=== PATIENT | female | born 1990 ===

== ENCOUNTER 2018-08-15 13:56 | Emergency (ER) | payer SELFPAY ==
--- NOTE | 2018-08-15 14:11 | ER Report ---
History and Physical Time Seen By MD: 14:11 Hx. of Stated Complaint: DIFFICULTY SWALLOWING HPI/ROS CHIEF COMPLAINT: Difficulty swallowing HISTORY OF PRESENT ILLNESS: 28-year-old female patient presents to emergency room with complaint of difficulty swallowing. Patient states that she's been having troubles for approximately 3 weeks at this point time. Patient states that she has no fevers, chills. Patient states she's been evaluated at [facility] urgent care, they did a myriad of lab tests. He said that her thyroid levels were low below. She states that they haven't ultrasound scheduled for a later time. I did encourage her to come emergency room she has difficulty swallowing water. Patient states today she had difficulty swallowing water. She states that she has had discomfort with that. She states that it has been getting progressively worse over last several days. She states prior that she did not have any sore throat, however the last few days this has gotten worse. REVIEW OF SYSTEMS: Respiratory: No cough, no dyspnea. Cardiovascular: No chest pain, no palpitations. Gastrointestinal: No vomiting, no abdominal pain. Musculoskeletal: No back pain. Allergies: Coded Allergies: sulfamethoxazole (Verified Allergy, Unknown, 08/15/18) trimethoprim (Verified Allergy, Unknown, 08/15/18) Home Meds No Active Prescriptions or Reported Meds Past Medical/Surgical History Patient has no pertinent medical or surgical history. Reviewed Nurses Notes: Yes Constitutional Vital Sign - Last 24 Hours 08/15/18 08/15/18 08/15/18 08/15/18 14:01 14:02 15:00 15:30 Temp 98.7 Pulse 86 Resp 18 B/P (MAP) 143/87 (105) 143/87 115/78 (90) 117/77 (90) Pulse Ox 96 O2 Delivery Room Air 08/15/18 08/15/18 08/15/18 16:00 16:30 17:00 Pulse 65 64 59 B/P (MAP) 112/77 (89) 120/86 (97) 111/77 (88) Pulse Ox 98 90 85 Physical Exam General Appearance: The patient is alert, has no immediate need for airway protection and no current signs of toxicity. ENT: Tympanic membranes are pearly-ruiz, auditory canals are patent, mucous membranes are moist. Posterior pharynx is erythematous. Respiratory: Chest is non tender, lungs are clear to auscultation. Cardiac: regular rate and rhythm Gastrointestinal: Abdomen is soft and non tender, no masses, bowel sounds normal. Musculoskeletal: Neck: Neck is supple and non tender. Extremities have full range of motion and are non tender. Skin: No rashes or lesions. DIFFERENTIAL DIAGNOSIS: After history and physical exam differential diagnosis was considered for upper respiratory infection, pharyngitis, peritonsillar abscess, post pharyngeal abscess. Medical Decision Making Data Points Result Diagram: 08/15/18 1425 08/15/18 1425 Laboratory Hematology Test 08/15/18 14:25 Red Blood Count 5.12 M/uL (4.17-5.56) Mean Corpuscular Volume 91.7 fL (80.0-96.0) Mean Corpuscular Hemoglobin 30.9 pg (26.0-33.0) Mean Corpuscular Hemoglobin Concent 33.7 g/dL (32.0-36.0) Red Cell Distribution Width 12.6 % (11.5-14.5) Mean Platelet Volume 7.6 fL (7.2-11.1) Neutrophils (%) (Auto) 70.9 % (39.4-72.5) Lymphocytes (%) (Auto) 19.8 % (17.6-49.6) Monocytes (%) (Auto) 7.8 % (4.1-12.4) Eosinophils (%) (Auto) 1.1 % (0.4-6.7) Basophils (%) (Auto) 0.4 % (0.3-1.4) Nucleated RBC Relative Count (auto) 0.0 /100WBC Neutrophils # (Auto) 4.7 K/uL (2.0-7.4) Lymphocytes # (Auto) 1.3 K/uL (1.3-3.6) Monocytes # (Auto) 0.5 K/uL (0.3-1.0) Eosinophils # (Auto) 0.1 K/uL (0.0-0.5) Basophils # (Auto) 0.0 K/uL (0.0-0.1) Nucleated RBC Absolute Count (auto) 0.00 K/uL Erythrocyte Sedimentation Rate 4 mm/HOUR (0-20) Sodium Level 143 mmol/L (137-145) Potassium Level 3.4 mmol/L (3.5-5.0) Chloride Level 108 mmol/L (98-107) Carbon Dioxide Level 21 mmol/L (22-31) Blood Urea Nitrogen 7 mg/dl (7-18) Creatinine 0.70 mg/dl (0.52-1.04) Glomerular Filtration Rate Calc > 60.0 Random Glucose 103 mg/dl (75-110) Calcium Level 10.0 mg/dl (8.4-10.2) Total Bilirubin 1.1 mg/dl (0.2-1.3) Aspartate Amino Transf (AST/SGOT) 30 U/L (0-35) Alanine Aminotransferase (ALT/SGPT) 25 U/L (0-56) Alkaline Phosphatase 58 U/L (0-126) C-Reactive Protein < 0.5 mg/dl (<1.0) Total Protein 8.5 g/dl (6.3-8.2) Albumin 5.1 g/dl (3.5-5.0) Human Chorionic Gonadotropin, Qual Negative (NEGATIVE) Monoscreen Negative (NEGATIVE) Chemistry Test 08/15/18 14:25 White Blood Count 6.6 k/uL (4.5-11.0) Red Blood Count 5.12 M/uL (4.17-5.56) Hemoglobin 15.8 g/dL (12.0-16.0) Hematocrit 47.0 % (34.0-47.0) Mean Corpuscular Volume 91.7 fL (80.0-96.0) Mean Corpuscular Hemoglobin 30.9 pg (26.0-33.0) Mean Corpuscular Hemoglobin Concent 33.7 g/dL (32.0-36.0) Red Cell Distribution Width 12.6 % (11.5-14.5) Platelet Count 230 K/uL (150-450) Mean Platelet Volume 7.6 fL (7.2-11.1) Neutrophils (%) (Auto) 70.9 % (39.4-72.5) Lymphocytes (%) (Auto) 19.8 % (17.6-49.6) Monocytes (%) (Auto) 7.8 % (4.1-12.4) Eosinophils (%) (Auto) 1.1 % (0.4-6.7) Basophils (%) (Auto) 0.4 % (0.3-1.4) Nucleated RBC Relative Count (auto) 0.0 /100WBC Neutrophils # (Auto) 4.7 K/uL (2.0-7.4) Lymphocytes # (Auto) 1.3 K/uL (1.3-3.6) Monocytes # (Auto) 0.5 K/uL (0.3-1.0) Eosinophils # (Auto) 0.1 K/uL (0.0-0.5) Basophils # (Auto) 0.0 K/uL (0.0-0.1) Nucleated RBC Absolute Count (auto) 0.00 K/uL Erythrocyte Sedimentation Rate 4 mm/HOUR (0-20) Glomerular Filtration Rate Calc > 60.0 Calcium Level 10.0 mg/dl (8.4-10.2) Total Bilirubin 1.1 mg/dl (0.2-1.3) Aspartate Amino Transf (AST/SGOT) 30 U/L (0-35) Alanine Aminotransferase (ALT/SGPT) 25 U/L (0-56) Alkaline Phosphatase 58 U/L (0-126) C-Reactive Protein < 0.5 mg/dl (<1.0) Total Protein 8.5 g/dl (6.3-8.2) Albumin 5.1 g/dl (3.5-5.0) Human Chorionic Gonadotropin, Qual Negative (NEGATIVE) Monoscreen Negative (NEGATIVE) EKG/Imaging Imaging EXAMINATION: CT neck with IV contrast HISTORY: Difficulty swallowing TECHNIQUE: CT was obtained through the neck following IV contrast administration. Sagittal and coronal reformatted images were generated. 75 mL of IV Isovue-370 injected. One of the following dose optimization techniques was utilized in the performance of this exam: automated exposure control; adjustment of the mA and/or kV according to patient size; or use of iterative reconstruction technique. Specific details can be referenced in the facility's radiology CT exam operational policy. COMPARISON: None. FINDINGS: Parotid/submandibular and thyroid glands: Partially cystic right mid to upper thyroid nodule measures 1.6 cm transverse by 2.4 cm craniocaudad. Pharyngeal and retropharyngeal soft tissues: Normal. Oral cavity and bathroom tiling professional space soft tissues: Normal. Larynx/glottis and airway: Normal. Lymph nodes: Normal. Vessels: No significant finding. Visualized orbits / brain: No significant finding. Upper chest: Normal. Bones/sinuses/mastoid air cells: Normal. IMPRESSION: 1. No acute finding. 2. Nonspecific 2.4 x 1.6 cm right mid to upper thyroid nodule. Thyroid ultrasound is recommended for further characterization. 3. Otherwise normal neck CT. Report Dictated By: Dada Heaton MD at 08/15/2018 4:09 PM Report E-Signed By: Dada Heaton MD at 08/15/2018 4:23 PM ED Course/Re-evaluation ED Course Patient is admitted and examined, history and physical were obtained. Differential diagnoses were considered. On examination lungs are clear, heart is regular, abdomen is soft and nontender. A CBC, CMP, ESR, CRP were done. Lab results were unremarkable. A CT scan of the soft tissues of neck was done. The images were negative except for a large nodule in the right hemisphere of the thyroid. I discussed the findings with the patient. We will go ahead and di scharge patient home at this time. Patient will be given Magic mouthwash to help with discomfort. We will also do an ultrasound at 8:00 in the morning. I would like her to follow-up Dr. Guerra for further evaluation of the thyroid nodule. I discussed this with patient who verbalized understanding and agreement with plan. Decision to Disposition Date: August 15, 2018 Decision to Disposition Time: 17:09 Depart Departure Latest Vital Signs Vital Signs Date Time Temp Pulse Resp B/P (MAP) Pulse Ox O2 Delivery O2 Flow Rate FiO2 08/15/18 17:00 59 111/77 (88) 85 08/15/18 14:02 98.7 18 Room Air Impression: Primary Impression: Thyroid nodule Condition: Improved Disposition: HOME OR SELF-CARE Referrals: PARVEEN GUERRA JR, MD New Scripts No Active Prescriptions or Reported Meds Patient Instructions: Pharyngitis (ED), Thyroid Nodules (ED) Additional Instructions: Increase fluid intake. Get plenty of rest Follow up with Dr. Guerra, ENT, call to make an appointment. Take Tylenol or Ibuprofen as needed. Get your Ultrasound done tomorrow at 8:00 a.m. Arrive 15 minutes early. LEN SAHNI [employer] August 15, 2018 14:11
[2018-08-15] MEDS ORDERED: NS(*) 0.9% 1000 ML BAG 1,000 ML IV ONE (14:25)
[2018-08-15 14:41] LABS: PLATELET COUNT, AUTOMATED 230 K/uL (150-450)
[2018-08-15] MEDS ORDERED: IOPAMIDOL 76% 100 ML INFUS BTL 100 ML ONE (15:31)
--- NOTE | 2018-08-15 16:28 | RADIOLOGY IMAGING REPORT ---
FACILITY: [facility] [place] PATIENT NAME: Rut Harris : 1990 MR: [id number] V: [id number] EXAM DATE: ORDERING PHYSICIAN: LEN SAHNI TECHNOLOGIST: [facility] Patient: Rut Harris : 1990 Visit/Account:[id number] Date of Sevice: 08/15/2018 EXAMINATION: CT neck with IV contrast HISTORY: Difficulty swallowing TECHNIQUE: CT was obtained through the neck following IV contrast administration. Sagittal and co jose antonio reformatted images were generated. 75 mL of IV Isovue-370 injected. One of the following dose optimization techniques was utilized in the performance of this exam: autom ated exposure control; adjustment of the mA and/or kV according to patient size; or use of iterative reconstruction technique. Specific details can be referenced in the facility's radiology CT exam ope rational policy. COMPARISON: None. FINDINGS: Parotid/submandibular and thyroid glands: Partially cystic right mid to upper thyroid nodule measures 1.6 cm transverse by 2.4 cm craniocaudad. Pharyngeal and retropharyngeal soft tissues: Normal. Oral cavity and vocal music instructor space soft tissues: Normal. Larynx/glottis and airway: Normal. Lymph nodes: Normal. Vessels: No significant finding. Visualized orbits / brain: No significant finding. Upper chest: Normal. Bones/sinuses/mastoid air cells: Normal. IMPRESSION: 1. No acute finding. 2. Nonspecific 2.4 x 1.6 cm right mid to upper thyroid nodule. Thyroid ultrasound is recommended fo r further characterization. 3. Otherwise normal neck CT. Report Dictated By: Dada Heaton MD at 08/15/2018 4:09 PM Report E-Signed By: Dada Heaton MD at 08/15/2018 4:23 PM WSN:[email or web address]
[2018-08-15 17:00] VITALS: BP 111/77
== END 2018-08-15 17:28 | disposition home or self-care (01) ==
LOC: ER 14:04
DX: E04.1 Nontoxic single thyroid nodule (principal)
CPT/HCPCS: 70491; 84703; 85025; 85651; 86140; 86308; 96360; 99284; J7030; Q9967; 82040; 82247; 82310; 82374; 82435; 82565; 82947; 84075; 84132; 84155; 84295; 84450; 84460; 84520

== ENCOUNTER → 2018-08-16 | Outpatient (CLI) | payer SELFPAY ==
--- NOTE | 2018-08-16 08:58 | RADIOLOGY IMAGING REPORT ---
FACILITY: [facility] PATIENT NAME: Rut Harris : 1990 MR: [id number] V: [id number] EXAM DATE: ORDERING PHYSICIAN: JOSE ALLRED TECHNOLOGIST: Location: [facility] Patient: Rut Harris : 1990 Visit/Account:[id number] Date of Sevice: 08/16/2018 THYROID HISTORY: Right thyroid nodule incidentally seen on a CT of the neck performed 08/15/2018 ADDITIONAL HISTORY: None. COMPARISON: The above-mentioned CT scan FINDINGS: Thyroid size: Normal. Right lobe: 5.0 craniocaudad by 2.3 x 1.5 cm Left lobe: 4.5 craniocaudad by 1.6 x 1.1 cm Thyroid nodules Right lobe: Consistent with the CT scan there is a complex partially solid and partially cystic and circumscribed oval nodule in the right upper lobe which measures 2.8 x 1.9 x 1.5 cm. It is hype remic. Left lobe: None discrete. Isthmus: None discrete. Thyroid vascularity: Within normal limits. Thyroid echotexture: Homogenous and normal. IMPRESSION: Solitary right thyroid lobe nodule as discussed above measures 2.8 cm maximum dimension. Morphologic ally low suspicion for malignancy but based upon size criteria ultrasound guided FNA recommended for definitive diagnosis. SONOGRAPHIC PATTERNS: * Benign: Purely cystic nodules (no solid component); estimated risk of malignancy <1 percent; no bi opsy recommended. * Very Low Suspicion: Spongiform or partially cystic nodules without any of the sonographic features described in low, intermediate, or high suspicion patterns; estimated risk of malignancy <3 percent; consider FNA at > 2 cm (Observation without FNA is also a reasonable option). * Low Suspicion: Isoechoic or hyperechoic solid nodule, or partially cystic nodule with eccentric so lid areas, without microcalcification, irregular margin or ETE (extra-thyroidal extension), or taller than wide shape; estimated risk of malignancy 5-10 percent; recommend FNA at >1.5 cm. * Intermediate Suspicion: Hypoechoic solid nodule with smooth margins without microcalcifications, E TE (extra-thyroidal extension), or taller than wide shape; estimated risk of malignancy 10-20 percent ; recommend FNA at > 1 cm. * High Suspicion: Solid hypoechoic nodule or solid hypoechoic component of a partially cystic nodule with one or more of the following features: irregular margins (infiltrative, microlobulated), microc alcifications, taller than wide shape, rim calcifications with small extrusive soft tissue component, evidence of ETE (extra-thyroidal extension); estimated risk of malignancy >70-90 percent; recommend FNA at > 1 cm. NOTES: * Although a sonographically suspicious subcentimeter thyroid nodule without evidence of extrathyroi kalie extension or sonographically suspicious lymph nodes may be observed with close sonographic follow -up rather than pursuing immediate FNA, patient age and preference may modify decision-making. * A > 50% interval increase in nodule volume and/or development of new suspicious sonographic featur es are felt to be a valid reasons for potential re-aspiration of a nodule previously shown to have be nign FNA cytology. REFERENCE: 2015 [place] [employer] Management Guidelines for Adult Patients with Thyroid Nodules and D ifferentiated Thyroid Cancer: The [place] [employer] (ANA PAULA) Guidelines Task Force on Thyroid Nodules and Differentiated Thyroid Cancer. Report Dictated By: Jacobo Urrutia MD at 08/16/2018 8:48 AM Report E-Signed By: Jacobo Urrutia MD at 08/16/2018 8:52 AM WSN:[email or web address]
== END ==
LOC: US 07:00
PROVIDERS: ATTEND Nurse Practitioner Family
DX: E04.1 Nontoxic single thyroid nodule (principal); E07.9 Disorder of thyroid, unspecified
CPT/HCPCS: 76536

== ENCOUNTER → 2018-09-07 | Outpatient (CLI) | payer BC ==
[~2018-09-07] MED LIST: BARIUM SULFATE 176 GM BTL PO ONE; BARIUM SULFATE 340 GM POWD ONE; MEDR150D IM; OMEP40CA48 PO
--- NOTE | 2018-09-07 15:12 | RADIOLOGY IMAGING REPORT ---
FACILITY: [facility] - [place] PATIENT NAME: Rut Harris : 1990 MR: [id number] V: [id number] EXAM DATE: ORDERING PHYSICIAN: LIONEL MORRIS TECHNOLOGIST: Location: Patient: Rut Harris : 1990 Visit/Account:[id number] Date of Sevice: 09/07/2018 Exam type: ESOPHAGRAM History: RIGHT THYROID NODULEDifficulty swallowing x4 weeks Comparison: CT soft tissues of the neck August 15, 2018. Findings: Double contrast esophagram was performed with thick and thin barium and air contrast there is no evid ence of significant narrowing or mucosal erosion within the esophagus. A small amount of gastroesoph ageal reflux was observed. The fluoroscopy dose area product was 131.70 micro-Campbell per meter squared IMPRESSION: 1. Small amount of gastric esophageal reflux otherwise unremarkable esophagram Report Dictated By: Larissa Grove MD at 09/07/2018 3:03 PM Report E-Signed By: Larissa Grove MD at 09/07/2018 3:07 PM WSN:[email or web address]
== END ==
LOC: RAD 00:52
PROVIDERS: ATTEND Physician Assistant
DX: K21.9 Gastro-esophageal reflux disease without esophagitis (principal)
CPT/HCPCS: 74220

== ENCOUNTER → 2018-09-19 | Outpatient (CLI) | payer BC ==
[~2018-09-19] MED LIST changes: -BARIUM SULFATE 176 GM BTL PO ONE; -BARIUM SULFATE 340 GM POWD ONE
[2018-09-19 09:39] LABS: INR 1.03
--- NOTE | 2018-09-19 17:22 | RADIOLOGY IMAGING REPORT ---
[place] [facility] [place] Rut [place] : 1990 MR: [id number] V: [id number] EXAM DATE: ORDERING PHYSICIAN: LIONEL MORRIS TECHNOLOGIST: [facility] [place] Patient: Rut Harris : 1990 Visit/Account:[id number] Date of Sevice: 09/19/2018 Exam type: US BIOPSY LOC/INJ THYROID History: RIGHT THYROID NODULE Comparison: The 2018. Findings: Informed consent was obtained. The right-sided the patient's neck was prepped and draped usual steri le fashion. Local anesthesia was accomplished with 1% lidocaine. Utilizing sonographic guidance fou r 25-gauge FNA biopsies were obtained through the complex nodule in the right lobe the thyroid. Samp les were given to the applied technologist for processing. The procedure was a copy slight apparen t complication. IMPRESSION: 1. Successful sonographically guided right-sided thyroid biopsy Report Dictated By: Larissa Grove MD at 09/19/2018 5:15 PM Report E-Signed By: Larissa Grove MD at 09/19/2018 5:16 PM WSN:[email or web address]
== END ==
LOC: US 00:39
PROVIDERS: ATTEND Physician Assistant
DX: Z01.812 Encounter for preprocedural laboratory examination (principal); E04.1 Nontoxic single thyroid nodule; R13.10 Dysphagia, unspecified
CPT/HCPCS: 10005; 36415; 85610; 88104; 88172